=== PATIENT | male | born 1965 | race Caucasian/White ===

== ENCOUNTER 2020-04-18 07:14 | Day surgery (SDC) | payer OTHER, SELFPAY ==
[2020-04-15 11:50] VITALS: BMI 26.3
--- NOTE | 2020-04-16 14:36 | HO.ANESPROP2 ---
Documented by User: Lexii Diaz 04/16/20 14:37 HPI - Anesthesia Eval Consult details Narrative: 55yo M for Colonoscopy [facility] Past Medical History Medical History Hx of simple renal cyst Surgical History Surgical History History of hydrocelectomy Hx of fusion of cervical spine Social History Social History (Updated 04/18/20 @ 07:56 by Ann Carvalho) Alcohol intake: never Smoking Status: Current every day smoker Tobacco Type: Cigarette Cigarettes Per Day: 10 Years Smoked: 25 Smoked in Last 30 Days: Yes Use of substances other than those prescribed or required for medical reasons: No Advance Directives: No Advance Directives Information Provided: Yes Recently lost weight without trying: No Meds Allergies Allergy/AdvReac Type Severity Reaction Status Date / Time No Known Allergies Allergy Verified 04/15/20 11:53 [No Known Allergies*] Home Medications Medication Instructions Recorded Confirmed Type cyclobenzaprine 1 tab PO TID PRN 04/15/20 04/15/20 History Exam Exam Date and Time: April 16, 2020 1436 Height,Weight and Vital Signs: Height 6 ft Weight 87.997 kg Assessment and Plan Assessment Anesthesia Assessment: Chart Reviewed Documented by User: Ann Carvalho 04/18/20 08:06 [facility] Past Medical History Medical History Hx of simple renal cyst Family History Family history of problems with anesthesia: No Surgical History Surgical History History of hydrocelectomy Hx of fusion of cervical spine History of Problems with Anesthesia: No Social History Social History (Updated 04/18/20 @ 07:56 by Ann Carvalho) Alcohol intake: never Smoking Status: Current every day smoker Tobacco Type: Cigarette Cigarettes Per Day: 10 Years Smoked: 25 Smoked in Last 30 Days: Yes Use of substances other than those prescribed or required for medical reasons: No Advance Directives: No Advance Directives Information Provided: Yes Recently lost weight without trying: No Meds Allergies Allergy/AdvReac Type Severity Reaction Status Date / Time No Known Allergies Allergy Verified 04/15/20 11:53 [No Known Allergies*] Home Medications Medication Instructions Recorded Confirmed Type cyclobenzaprine 1 tab PO TID PRN 04/15/20 04/15/20 History Exam Height,Weight and Vital Signs: Vital Signs Temp Pulse Resp Pulse Ox 04/18/20 07:29 97.5 F 93 18 97 Pertinent Lab Results Pertinent Lab Results: EKG: SR. Incomplete RBBB on monitor rhythm strip Airway Mallampati Class: II TM Dist: >3cm Partial: Lower Loose/Missing/Broken Teeth: Yes (No teeth top) Heart: RRR Lungs: CTAB Assessment and Plan Assessment Anesthesia Assessment: Anesthesia Plan Discussed and Chart Reviewed Final Anesthetic Review NPO: Yes ASA Class: II Final Preanesthetic Review: No Changes in Pt Med Stat, Meds/Allgs Chart Reviewed, Consent Obtained/Reviewed and Anes Risks/Benef Reviewed Patient Risk: Low Procedure Risk: Low Anesthetic Plan Anesthetic Plan: MAC: Disposition: Standard PACU
[2020-04-17 12:24] VITALS: BMI 26.3
--- NOTE | 2020-04-18 07:15 | P.HPSUR_ITS ---
Pre-Procedural Eval Section A The patient is an INPATIENT: No The History & Physical has been completed within 30 days and I have reviewed it.: No Section B Chief Complaint: SCREENING Details of Present Illness: Patient is here for a colon cancer screening. This is his first colo Denies FHX CRC Denies other cancers Denies ETOH use Denies illicit substance use Admits cigarette use- 10 a day denies issues with anesthesia Denies exposure to HIV, Hep A,B,C or tuberculosis Denies cardiac issues Denies respiratory issues Denies issues with anxiety reports constipation and some mild RB after straining- will start him on Senna & Colace Relevant Family History (Specify if Yes): No Relevant Social History: Tobacco Use Present Medications: see Short Stay Collaborative assessment Medical History: Significant History (Depression. Anxiety. Testi cular mass. Kidney cysts. Cervicalgia. ) History of Previous Operations: Relevant previous surgery/procedure and date(s) (neck surgery 9 years ago) Allergies: Allergies Allergy/AdvReac Type Severity Reaction Status Date / Time No Known Allergies Allergy Verified 04/15/20 11:53 [No Known Allergies*] Review of Systems Sugical H&P ROS: Negative: Constitution, Cardiovascular, Respiratory and Gastrointestinal Exam Surgical H&P Exam: Normal: Heart, Normal: Lungs, Normal: Extremities and Normal: Abdomen Plan Diagnosis/Plan: Unchanged Patient has been examined and remains a candidate for the planned procedure
--- NOTE | 2020-04-18 07:15 | W.PM.OPN ---
Operative Note Operative Note Date of Service: 04/18/20 Narrative: Pre-op diagnosis: colon cancer screening Post-op diagnosis: other (Colon polyps, diverticulosis, hemorrhoids) Procedure: COLONOSCOPY TILL CECUM WITH BIOPSY, SNARE POLYPECTOMY, SUBMUCOSAL INJECTION AND CONTROL OF BLEEDING WITH HEMOCLIP PLACEMENT Consent: Indications for the procedure and potential complications of bleeding, perforation, reaction to medications and missed diagnosis were discussed with the patient and informed consent was obtained. Instrument: Olympus PCF H 190 L variable stiffness pediatric colonoscope Monitoring: Vital signs and clinical assessment, intermittent blood pressure monitoring, continuous EKG monitoring, Pulse oximetry and Carbon Dioxide monitoring were done throughout the procedure. Colon withdrawl time was 36 minutes. Procedure: The patient was placed in the left lateral decubitis position and pre-procedure medications were administered. After a digital rectal examination of the ano-rectum, the video colonoscope was inserted into the rectum and advanced through the colon to the cecum. The colonoscope was slowly withdrawn in a retrograde panoramic fashion and the colon mucosa was carefully examined including a retroflexed view of the rectum. Findings and interventions are described below. Procedure Difficulty: Pt was placed in the supine position and LLQ pressure was applied to intubate the cecum Findings: Terminal Ileum: Not evaluated Cecum: A 2.5 - 3 cms sessile polyp opposite the ICV raised with 3 cc of normal saline (submucosal injection) and removed with a hot snare. One resolution clip was applied to the polypectomy site. Ascending Colon: Normal Transverse Colon: Normal Descending Colon: Moderate diverticulosis Sigmoid Colon: A 2.5 cms sessile polyp at 40 cms removed with a hot snare. A 5-6 mm diminutive appearing polyp removed with a cold bx. Moderate diverticulosis Rectum: A 3 cms sessile polyp at 5 cms raised with 5 cc of normal saline and removed with a hot snare. Some bleeding noted from polypectomy site treated with cautery using the snare tip and 3 resolution clips were placed to close the polypectomy site. Ano-rectum: Moderate internal hemorrhoids Colon preparation: Good Impression and Post Procedure Diagnosis: Colonoscopy Findings: Three large and one small polyps removed Moderate diverticulosis seen in the left colon Moderate hemorrhoids on retroflexed exam. Plan: Await pathology results Patient has an appointment on in the GI Clinic with [MARCELO Santiago] [Moraima Hawkins NP] [Rubeela Rafael, M.D.]. Repeat Colonoscopy interval based on path results - in 1 years if polyps are adenomatous and 10 years if polyps are hyperplastic. Above findings were reviewed with the patient and colon polyps and diverticulosis handouts were given in the discharge area Surgeon: Joseph Hall MD Anesthesia: MAC (HIGINIO Spear) Estimated blood loss (mL): 3.0 Pathology: other (A. cecal polyp x 1, B. SC polyp at 40 cms, C. SC polyp, D. Rectal polyp) Condition: stable Disposition: PACU
[2020-04-18 07:29] VITALS: PULSE 93; RESP 18; TEMP 36.4; O2SAT 97
[2020-04-18 08:52] VITALS: BP 93/66; PULSE 78; RESP 16; TEMP 36.2; O2SAT 98
[2020-04-18 09:07] VITALS: BP 122/83; PULSE 70; RESP 13; TEMP 36.2; O2SAT 100
--- NOTE | 2020-04-18 09:47 | HO.POSTANES ---
Post Anesthesia Evaluation Post Anesthesia Evaluation Vital Signs: Vital Signs Temp Pulse Resp BP Pulse Ox 04/18/20 09:07 97.1 F 70 13 122/83 100 04/18/20 08:52 97.1 F 78 16 93/66 98 04/18/20 07:29 97.5 F 93 18 97 Anesthesia: Monitored Mental Status: Awake Pain Control: Satisfactory Nausea/Vomiting: None Hydration: Adequate Anesthesia-Related Issues: No Anes. Related Issues
== END 2020-04-18 10:59 | disposition home or self-care (01) ==
PROVIDERS: PCP Internal Medicine; Visit Provider Internal Medicine Gastroenterology
PROC: 0DJD8ZZ Inspection of Lower Intestinal Tract, Via Natural or Artificial Opening Endoscopic (ICD-10-PCS; CPT 45378; principal; 2020-04-18 07:30)
DX: Z12.11 Encounter for screening for malignant neoplasm of colon (principal); D12.0 Benign neoplasm of cecum; D12.5 Benign neoplasm of sigmoid colon; D12.8 Benign neoplasm of rectum; K57.30 Diverticulosis of large intestine without perforation or abscess without bleeding; K64.8 Other hemorrhoids
CPT/HCPCS: 45385; 45380; 45381; 88305